=== PATIENT | male | born 1980 | race African-American/Black ===

== ENCOUNTER 2018-10-16 01:42 | Emergency (ER) | payer MEDICAID ==
[~2018-10-16] VITALS: Ht 182.9 cm; Wt 89.8 kg
--- NOTE | 2018-10-16 02:05 | NUR ---
DR KUMAR IS AT THE BEDSIDE.
[2018-10-16] MEDS ORDERED: HYDROCODONE/APAP 10/325MG 1 EA TABLET ONE (02:16)
[2018-10-16] MEDS ORDERED: ONDANSETRON 4 MG TAB.RAPDIS ONE (02:16)
[2018-10-16] MEDS ORDERED: HYDROCODONE/APAP 10/325MG 1 EA TABLET PO ONE (02:30)
[2018-10-16] MEDS ORDERED: ONDANSETRON 4 MG TAB.RAPDIS SL ONE (02:30)
--- NOTE | 2018-10-16 02:47 | NUR ---
Wound care in progress at the bedside. Wound care done by JENNIFER Watters.
--- NOTE | 2018-10-16 03:44 | NUR ---
PT REC'D AN ORTHO SHOE.
--- NOTE | 2018-10-16 03:45 | NUR ---
Patient discharged to home in stable condition. Written and verbal after care instructions given. Patient verbalizes understanding of instruction AND RX. PT WAS NOT ABLE TO AMBULATE WITH THE ORTHO SHOE. PT TO GET CRUTCHES.
--- NOTE | 2018-10-16 03:47 | NUR ---
Crutches dispensed PER DR KUMAR. Pt instructed on proper use of crutches BY JENNIFER GARCIA. Patient able to demonstrate correct use of crutches.
--- NOTE | 2018-10-16 03:48 | NUR ---
PT AMBULATED OUT WITH CRUTCHES.
[2018-10-16 03:49] VITALS: BP 140/90
== END 2018-10-16 04:16 | disposition home or self-care (01) ==
LOC: ER 01:43
DX: L97.519 Non-pressure chronic ulcer of other part of right foot with unspecified severity (principal); B35.3 Tinea pedis
CPT/HCPCS: 99283; Q0162